=== PATIENT | female | born 1955 | race Two or more races ===

== ENCOUNTER 2020-12-26 08:05 | Outpatient (REF) | payer SELFPAY | END 2020-12-26 08:06 | disposition home or self-care (01) | LOC: HO.SCI 08:05 | PROVIDERS: Visit Provider Internal Medicine Geriatric Medicine | DX: Z13.89 Encounter for screening for other disorder (principal) ==

== ENCOUNTER 2021-03-15 12:04 | Outpatient (REF) | payer MEDICARE, SELFPAY ==
--- NOTE | ~2021-03-15 | MM_ITS ---
EXAMINATION: BONE DENSITOMETRY CLINICAL INDICATION: Encounter for screening for osteoporosis. COMPARISON: None (current study represents initial baseline exam). TECHNIQUE: Using a [employer] DXA System (software version: 13.1) manufactured by [employer], dual-energy x-ray absorptiometry was performed of the lumbar spine and left hip. The images are of good technical quality. Summary results are attached. FINDINGS: AP SPINE L1-L4: BMD 1.230 g/cm2, Z-score 2.2, T-score 0.4, normal. LEFT FEMUR, NECK: BMD 0.877 g/cm2, Z-score 0.5, T-score -1.2, osteopenia. LEFT FEMUR, TOTAL: BMD 0.864 g/cm2, Z-score 0.3, T-score -1.1, osteopenia. IDENTIFIED RISK FACTORS: Menopause. HISTORY OF FRACTURE: None listed. MEDICATIONS: None listed. MM/XR DEXA axial skeleton IMPRESSION: 1. DIAGNOSIS: Osteopenia based on the lowest T-score value of -1.2 in the femoral neck applying World Health Organization criteria. 2. 10-YEAR FRACTURE RISK PREDICTION, FRAX: Major osteoporotic fracture (clinical spine, forearm, hip or shoulder) 4.8%. Hip fracture 0.5%. 3. Treatment Recommendations: NOF guidelines recommend consideration for treatment in postmenopausal women and men age 50 and older presenting with the following: -A hip or vertebral (clinical or morphometric) fracture. -T-score less than or equal to -2.5 at the femoral neck or spine after appropriate evaluation to exclude secondary causes. -Low bone mass at the hip or spine and a 10-year fracture probability by FRAX of greater than or equal to 3% for hip fracture or greater than or equal to 20% for major osteoporotic fracture based on the [place] adapted WHO algorithm. 4. Other Recommendations: All treatment decisions require clinical judgment and consideration of individual patient factors, including patient preferences, comorbidities, previous drug use, risk factors not captured in the FRAX model (e.g. frailty, falls, vitamin D deficiency, increased bone turnover, interval significant decline in bone density) and possible under or overestimation of fracture risk by FRAX. Additional medical evaluation for secondary cause of low bone mineral density may be appropriate. FUTURE SCAN RECOMMENDATION: People with diagnosed cases of osteoporosis or at high risk for fracture should have regular bone mineral density tests. For patients eligible for Medicare, routine testing is allowed once every 2 years. The testing frequency can be increased to one year for patients who have rapidly progressing disease, those who are receiving or discontinuing medical therapy to restore bone mass, or have additional risk factors.
--- NOTE | ~2021-03-15 | MM_ITS ---
EXAMINATION: MM SCREENING DIGITAL BREAST TOMOSYNTHESIS, BILATERAL CLINICAL INFORMATION: Screening. Asymptomatic. The lifetime risk of breast cancer based on the Tyrer-Cuzick Model is 5.1%. COMPARISON: Mammography: October 28, 2009 TECHNIQUE: Digital breast tomosynthesis is performed in both the craniocaudal and mediolateral oblique views along with computer-aided detection (CAD). Synthesized 2D images are generated from the tomosynthesis. FINDINGS: There are scattered areas of fibroglandular density (ACR BI-RADS breast composition Category b). There is a stable parenchymal pattern of the right breast with no new abnormal dominant mass or suspicious grouping of microcalcifications. Within the anterior medial aspect of the left breast approximately 3 cm from nipple there is a 4 mm circumscribed density for which spot compression view and probable ultrasound is recommended. MM/MM tomosynthesis screening BI IMPRESSION: 4 mm density medial aspect of the left breast. ASSESSMENT: BI-RADS 0: Incomplete - Need Additional Imaging Evaluation RECOMMENDATION: 1. Additional views of the left breast 2. Targeted ultrasound if warranted after review of the additional views. 3. Radiology department staff will contact the patient for additional imaging. This patient's information was entered into a reminder system with a target due date for their next mammogram.
== END 2021-03-15 12:05 | disposition home or self-care (01) ==
LOC: HO.MAMMO 12:04
PROVIDERS: Visit Provider Internal Medicine Geriatric Medicine
DX: Z13.820 Encounter for screening for osteoporosis (principal); Z78.0 Asymptomatic menopausal state; Z12.31 Encounter for screening mammogram for malignant neoplasm of breast
CPT/HCPCS: 77063; 77067; 77080

== ENCOUNTER 2021-04-27 14:19 | Outpatient (REF) | payer MEDICARE, SELFPAY ==
--- NOTE | ~2021-04-27 | MM_ITS ---
EXAMINATION: MM DIAGNOSTIC DIGITAL BREAST TOMOSYNTHESIS, LEFT US DIAGNOSTIC ULTRASOUND BREAST, LEFT CLINICAL INFORMATION: Recall from screening for 4 mm nodule anterior left breast, new from prior remote exam 2009 COMPARISON: Mammography: 03/15/2021, outside mammography 10/28/2009 ([facility]) TECHNIQUE: Digital breast tomosynthesis is performed. 2D images are generated from the tomosynthesis. The following views are obtained: Spot CC, spot MLO Ultrasound left breast is targeted to the upper inner quadrant 9:00 through 1:00 position. Grayscale imaging and color Doppler are performed without and with harmonics. FINDINGS: There are scattered areas of fibroglandular density (ACR BI-RADS breast composition Category b). Additional spot views show smooth benign-appearing 3 x 4 mm nodule 11:30 o'clock position. No architectural abnormality. Ultrasound demonstrates incidental 0.3 cm cyst 11:00 position anterior breast with smaller adjacent satellite cyst. Margins are circumscribed. There is increased through-transmission of sound and no associated color flow. No solid mass or architectural abnormality. Results are discussed with the patient and family at time of visit. MM/MM tomosynthesis added views L IMPRESSION: Small cyst anterior 11:00 position corresponding to recent screening mammography. ASSESSMENT: BI-RADS 2: Benign RECOMMENDATION: Routine annual mammography screening. This patient's information was entered into a reminder system with a target due date for their next mammogram.
== END 2021-04-27 14:20 | disposition home or self-care (01) ==
LOC: HO.MAMMO 14:19
PROVIDERS: PCP Internal Medicine Geriatric Medicine; Visit Provider Internal Medicine Geriatric Medicine
DX: R92.2 Inconclusive mammogram (principal)
CPT/HCPCS: 76642; 77061; 77065

== ENCOUNTER 2022-03-21 08:54 | Outpatient (REF) | payer MEDICARE, SELFPAY ==
--- NOTE | ~2022-03-21 | MM_ITS ---
EXAMINATION: MM SCREENING DIGITAL BREAST TOMOSYNTHESIS, BILATERAL CLINICAL INFORMATION: Screening. Asymptomatic. The lifetime risk of breast cancer based on the Tyrer-Cuzick Model is 4%. COMPARISON: Mammography: 04/27/2021, 03/15/2021; outside mammography 10/28/2009 ([facility]). Ultrasound left breast 04/27/2021. TECHNIQUE: Digital breast tomosynthesis is performed in both the craniocaudal and mediolateral oblique views along with computer-aided detection (CAD). Synthesized 2D images are generated from the tomosynthesis. FINDINGS: There are scattered areas of fibroglandular density (ACR BI-RADS breast composition Category b). Parenchymal pattern is similar to prior studies. There is no significant mass or developing density or architectural abnormality. The axilla and skin contours are unremarkable. There is stable smooth nodularity central and outer left breast and posterior upper outer right breast. Again, scattered bilateral benign coarse intradermal calcifications are present in both breasts. There are incidental grouped dermal calcifications upper outer right breast. The left breast has interval grouped calcifications central breast just lateral to midline, 7 cm from nipple. Patient will be recalled for additional imaging. MM/MM tomosynthesis screening BI IMPRESSION: Left: -Grouped calcifications 7 cm from nipple just lateral to midline. Right: -No mammographic evidence of malignancy. ASSESSMENT: BI-RADS 0: Incomplete - Need Additional Imaging Evaluation RECOMMENDATION: 1. Additional views of the left breast (magnification CC, magnification ML). 2. Radiology department staff will contact the patient for additional imaging. This patient's information was entered into a reminder system with a target due date for their next mammogram.
== END 2022-03-21 08:55 | disposition home or self-care (01) ==
LOC: HO.MAMMO 08:54
PROVIDERS: PCP Internal Medicine Geriatric Medicine; Visit Provider Internal Medicine Geriatric Medicine
DX: Z12.31 Encounter for screening mammogram for malignant neoplasm of breast (principal)
CPT/HCPCS: 77063; 77067

== ENCOUNTER 2022-03-27 08:36 | Outpatient (REF) | payer MEDICARE, MEDICAID, SELFPAY ==
--- NOTE | ~2022-03-27 | MM_ITS ---
EXAMINATION: MM DIAGNOSTIC DIGITAL MAMMOGRAPHY, LEFT CLINICAL INFORMATION: Recall from screening for grouped calcifications mid left breast. COMPARISON: Mammography: 03/21/2022, 04/27/2021, 03/15/2021 TECHNIQUE: Digital mammography is performed in the following views: Magnification CC, magnification ML. FINDINGS: There are scattered areas of fibroglandular density (ACR BI-RADS breast composition Category b). The additional magnification views show loosely grouped heterogeneous calcifications central breast representing the area intended for recall. This represents change from prior studies, possibly fibroadenomatous change. Stereotactic sampling is recommended. The magnification views also show an unexpected smaller group of calcifications 3-4 cm more anterior which may be included as an additional site for stereotactic sampling. Results are discussed with the patient at time of visit, using an global chief creative officer. MM/MM added views LT IMPRESSION: -2 groups of calcifications left breast representing change from prior studies, stereotactic sampling recommended. ASSESSMENT: BI-RADS 4: Suspicious (subcategory 4A: Low suspicion for malignancy) RECOMMENDATION: Stereotactic biopsy at 2 sites left breast.
== END 2022-03-27 08:37 | disposition home or self-care (01) ==
LOC: HO.MAMMO 08:36
PROVIDERS: PCP Internal Medicine Geriatric Medicine; Visit Provider Internal Medicine Geriatric Medicine
DX: R92.1 Mammographic calcification found on diagnostic imaging of breast (principal)
CPT/HCPCS: 77065

== ENCOUNTER 2022-03-29 09:40 | Outpatient (REF) | payer MEDICARE, MEDICAID, SELFPAY ==
--- NOTE | ~2022-03-29 | MM_ITS ---
EXAMINATION: STEREOTACTIC TOMOSYNTHESIS-GUIDED VACUUM-ASSISTED BREAST BIOPSY, LEFT X 2 SPECIMEN RADIOGRAPH, LEFT X 2 POST PROCEDURE DIGITAL MAMMOGRAM, LEFT CLINICAL INFORMATION: 2 indeterminate groupings of calcifications within the left breast. COMPARISON: 03/27/2022 and studies dating back to 10/28/2009. TECHNIQUE/PROCEDURE: Informed consent was obtained from the patient after discussion of the benefits, risks, and alternatives to biopsy today. Patient appeared to understand. Gave opportunity for questions. Patient signed consent form. BIOPSY TABLE: [employer] Affirm Prone Biopsy System. LESION: 2 groupings of calcifications within the superior aspect of the left breast. LOCAL ANESTHESIA: 30 mL 1% lidocaine; 40 mL 1% lidocaine with epinephrine. DERMATOTOMY: 2 skin eun dermatotomies performed. NEEDLE: [employer] 9-gauge vacuum-assisted core biopsy device. APPROACH: Craniocaudal. TARGETING: Digital breast tomosynthesis used for targeting. CORES: 19 for one sample and 21 for the other sample. CLIP: [employer] T-SHAPED MARKER: For the more anterior grouping of calcifications. Cylinder for the more superior and posterior grouping of calcifications. SPECIMEN RADIOGRAPH: Specimen radiograph is taken in separate room using digital mammography. The index calcifications of each group of calcifications are in the excised cores. POST PROCEDURE UNILATERAL DIGITAL MAMMOGRAM: The post biopsy mammogram is performed in separate room using separate digital mammography equipment from the biopsy procedure. 2 views are obtained. There are scattered areas of fibroglandular density (breast composition category: b). The clip markers are in position. The calcifications are markedly decreased at the biopsy site. No gross hematoma. The patient tolerated the procedure well. No immediate complications. Home instructions reviewed with the patient. Final pathology results are pending. MM/MM stereotactic biopsy LT IMPRESSION: 1. Digital tomosynthesis-guided core biopsy (x 2), left breast with clip placement. 2. Specimen radiograph taken and post procedure mammogram. There is satisfactory positioning of the biopsy clips. 3. Final pathology results pending. An addendum report will be issued.
--- NOTE | ~2022-03-29 | MM_ITS ---
EXAMINATION: STEREOTACTIC TOMOSYNTHESIS-GUIDED VACUUM-ASSISTED BREAST BIOPSY, LEFT X 2 SPECIMEN RADIOGRAPH, LEFT X 2 POST PROCEDURE DIGITAL MAMMOGRAM, LEFT CLINICAL INFORMATION: 2 indeterminate groupings of calcifications within the left breast. COMPARISON: 03/27/2022 and studies dating back to 10/28/2009. TECHNIQUE/PROCEDURE: Informed consent was obtained from the patient after discussion of the benefits, risks, and alternatives to biopsy today. Patient appeared to understand. Gave opportunity for questions. Patient signed consent form. BIOPSY TABLE: [employer] Affirm Prone Biopsy System. LESION: 2 groupings of calcifications within the superior aspect of the left breast. LOCAL ANESTHESIA: 30 mL 1% lidocaine; 40 mL 1% lidocaine with epinephrine. DERMATOTOMY: 2 skin eun dermatotomies performed. NEEDLE: [employer] 9-gauge vacuum-assisted core biopsy device. APPROACH: Craniocaudal. TARGETING: Digital breast tomosynthesis used for targeting. CORES: 19 for one sample and 21 for the other sample. CLIP: [facility] SECURMARK T-SHAPED MARKER: For the more anterior grouping of calcifications. Cylinder for the more superior and posterior grouping of calcifications. SPECIMEN RADIOGRAPH: Specimen radiograph is taken in separate room using digital mammography. The index calcifications of each group of calcifications are in the excised cores. POST PROCEDURE UNILATERAL DIGITAL MAMMOGRAM: The post biopsy mammogram is performed in separate room using separate digital mammography equipment from the biopsy procedure. 2 views are obtained. There are scattered areas of fibroglandular density (breast composition category: b). The clip markers are in position. The calcifications are markedly decreased at the biopsy site. No gross hematoma. The patient tolerated the procedure well. No immediate complications. Home instructions reviewed with the patient. Final pathology results are pending. MM/MM stereotactic biopsy ea add IMPRESSION: 1. Digital tomosynthesis-guided core biopsy (x 2), left breast with clip placement. 2. Specimen radiograph taken and post procedure mammogram. There is satisfactory positioning of the biopsy clips. 3. Final pathology results pending. An addendum report will be issued.
[2022-03-29] MEDS: Lidocaine HCl 1 % 20 ML VIAL 30 ML SUBCUT (12:28)
[2022-03-29] MEDS: Sodium Bicarbonate 8.4% 50 MEQ/50 ML VIAL SUBCUT (12:31)
== END 2022-03-29 09:41 | disposition home or self-care (01) ==
LOC: HO.MAMMO 09:40
PROVIDERS: PCP Internal Medicine Geriatric Medicine; Visit Provider Surgery
DX: R92.1 Mammographic calcification found on diagnostic imaging of breast (principal); Z79.899 Other long term (current) drug therapy
CPT/HCPCS: 19081; 19082; 88305; 99202; A4648

== ENCOUNTER → 2022-04-05 10:20 | Outpatient (BNVA) | payer MEDICARE, MEDICAID, SELFPAY | PROVIDERS: PCP Internal Medicine Geriatric Medicine; Visit Provider Surgery | DX: R92.1 Mammographic calcification found on diagnostic imaging of breast (principal); Z98.890 Other specified postprocedural states | CPT/HCPCS: 99212 ==

== ENCOUNTER → 2022-05-11 08:58 | Day surgery (SDC) | payer MEDICARE, OTHER, SELFPAY ==
[2022-05-08 13:16] VITALS: BMI 23.3
--- NOTE | 2022-05-10 11:51 | P.CONAN_ITS ---
HPI - Anesthesia Eval Consult details Narrative: 67yo F for Breast Lumpectomy/Needle Loc PMFSH Active Problems Active Problems: All Active Problems (Updated 05/08/22 @ 13:16 by Cristin Johansen, RN) Intraductal papilloma of left breast (Acute) Hypertension (Acute) Breast calcification, left (Acute) Past Medical History Medical History (Updated 05/08/22 @ 13:16 by Cristin Johansen, RN) Anxiety Breast calcification, left Hypertension Intraductal papilloma of left breast Panic attacks Family History Family History Brother Throat cancer Stomach cancer Sister Breast cancer Surgical History Surgical History (Updated 05/08/22 @ 13:14 by Cristin Johansen RN) H/O excision of mass History of section Hx of colonoscopy Social History Social History Are you a primary direct support professional caregiver to a significant other at home: No Do you presently have visiting nurse or other home services: No Alcohol intake: current Alcohol intake frequency: holidays/special occasions only Patient Tobacco Use Status: Former Tobacco user Quit Date: Tobacco use type: Cigarette Use of substances other than those prescribed or required for medical reasons: No Are you DNR?: No Advance Directives: No Advance Directives Information Provided: Yes Advance Directives on File: No Recently lost weight without trying: No Nutrition Risks: No Nutritional Risk Meds Allergies Allergy/AdvReac Type Severity Reaction Status Date / Time No Known Allergies Allergy Verified 05/08/22 13:14 Home Medications Medication Instructions Recorded Confirmed Last Taken Type atorvastatin 20 mg tablet 20 mg PO DAILY 03/29/22 05/08/22 Unknown History calcium carbonate 500 mg-vitamin 1 tab PO BID 03/29/22 05/08/22 Unknown History D3 10 mcg (400 unit) tablet ([employer] Shell Calcium-Vitamin D3) lisinopril 10 mg tablet 10 mg PO DAILY 03/29/22 05/08/22 Unknown History metformin 850 mg tablet 850 mg PO BID 03/29/22 05/08/22 Unknown History omeprazole 20 mg capsule,delayed 20 mg PO DAILY 03/29/22 05/08/22 Unknown History release Exam Exam Date and Time: May 10, 2022 1151 Height,Weight and Vital Signs: Height 5 ft 3 in Weight 59.874 kg Assessment and Plan Assessment Anesthesia Assessment: Chart Reviewed
[2022-05-11 09:23] VITALS: BP 144/78; PULSE 85; RESP 15; TEMP 36.8; O2SAT 99
[2022-05-11] MEDS: Lactated Ringers 1,000 ML 100 ML IVCONT (09:42)
[2022-05-11 09:47] LABS: Glucose, Whole Blood 169 mg/dL (60-115)
--- NOTE | 2022-05-11 10:03 | MHC.SHP ---
Pre-Procedural Eval Section A Date of Service: 05/11/22 Section B Chief Complaint: Mammographic calcification found on diagnostic ishan Details of Present Illness: had biopsy of left breast calcifications showing intraductal papilloma Relevant Family History (Specify if Yes): No Present Medications: see Short Stay Collaborative assessment Medical History: Significant History (HTN) Allergies: Allergies Allergy/AdvReac Type Severity Reaction Status Date / Time No Known Allergies Allergy Verified 05/11/22 09:11 Review of Systems Sugical H&P ROS: Negative: Constitution, Cardiovascular, Respiratory, Neurological, Psychiatric, Hem-Onc, Allergic/Immunologic, Gastrointestinal, Genitourinary, Musculoskeletal, Integumentary, Endocrine and Eyes/Ears/Nose/Throat Exam Surgical H&P Exam: Normal: HEENT, Normal: Heart, Normal: Lungs, Normal: Extremities, Normal: Abdomen, Normal: Skin and Normal: Neurological Plan Diagnosis/Plan: Unchanged I have reviewed the history and physical and performed a pertinent physical examination on my patient. No changes have occurred unless specified.
--- NOTE | 2022-05-11 10:59 | PC.NURSE ---
[facility] informed [facility] that Needle Loc. machine is down and has called for it to be serviced. Dr. Jeter and Deo at beside with patient to inform of this. Pt informed office will call to reschedule procedure.
== END | disposition home or self-care (01) ==
PROVIDERS: PCP Internal Medicine Geriatric Medicine; Visit Provider Surgery
DX: R92.1 Mammographic calcification found on diagnostic imaging of breast (principal); Z53.8 Procedure and treatment not carried out for other reasons; D24.2 Benign neoplasm of left breast; I10 Essential (primary) hypertension; Z79.84 Long term (current) use of oral hypoglycemic drugs; Z79.899 Other long term (current) drug therapy
CPT/HCPCS: 82947; J0690; J2250; J2795; J3010

== ENCOUNTER 2022-06-21 06:33 | Day surgery (SDC) | payer MEDICARE, OTHER, SELFPAY ==
[2022-06-19 12:03] VITALS: BMI 23.3
--- NOTE | 2022-06-20 10:42 | HO.ANESPROP2 ---
Documented by User: Judi Bearden NP 06/20/22 10:43 HPI - Anesthesia Eval Consult details Narrative: 67yo F for Left Breast Lumpectomy/Needle Loc PMFSH Active Problems Active Problems: All Active Problems (Updated 05/11/22 @ 09:40 by Jackie Nicole, RN) Intraductal papilloma of left breast (Acute) Hypertension (Acute) Breast calcification, left (Acute) Past Medical History Medical History Anxiety Breast calcification, left Diabetes GERD (gastroesophageal reflux disease) Hypertension Intraductal papilloma of left breast Panic attacks Family History Family History Brother Throat cancer Stomach cancer Sister Breast cancer Surgical History Surgical History H/O excision of mass History of section Hx of colonoscopy Social History Social History Are you a primary resident care assistant to a significant other at home: No Do you presently have visiting nurse or other home services: No Alcohol intake: current Alcohol intake frequency: holidays/special occasions only Patient Tobacco Use Status: Former Tobacco user Quit Date: Tobacco use type: Cigarette Use of substances other than those prescribed or required for medical reasons: No Are you DNR?: No Advance Directives: No Advance Directives Information Provided: Yes Advance Directives on File: No Recently lost weight without trying: No Nutrition Risks: No Nutritional Risk Meds Allergies Allergy/AdvReac Type Severity Reaction Status Date / Time No Known Allergies Allergy Verified 06/19/22 12:09 Home Medications Medication Instructions Recorded Confirmed Last Taken Type atorvastatin 20 mg tablet 20 mg PO DAILY 03/29/22 06/19/22 Unknown History calcium carbonate 500 mg-vitamin 1 tab PO BID 03/29/22 06/19/22 Unknown History D3 10 mcg (400 unit) tablet (Oyster Shell Calcium-Vitamin D3) lisinopril 10 mg tablet 10 mg PO DAILY 03/29/22 06/19/22 Unknown History metformin 850 mg tablet 850 mg PO BID 03/29/22 06/19/22 Unknown History omeprazole 20 mg capsule,delayed 20 mg PO DAILY 03/29/22 06/19/22 05/11/22 07:00 History release Exam Exam Date and Time: June 20, 2022 1042 Height,Weight and Vital Signs: Height 5 ft 3 in Weight 59.87 kg Assessment and Plan Assessment Anesthesia Assessment: Chart Reviewed Documented by User: Maximiliano Hahn MD 06/21/22 07:58 PMFSH Past Medical History Medical History Anxiety Breast calcification, left Diabetes GERD (gastroesophageal reflux disease) Hypertension Intraductal papilloma of left breast Panic attacks Family History Family History Brother Throat cancer Stomach cancer Sister Breast cancer Family history of problems with anesthesia: No Surgical History Surgical History H/O excision of mass History of section Hx of colonoscopy History of Problems with Anesthesia: No Social History Social History Are you a primary resident care assistant to a significant other at home: No Do you presently have visiting nurse or other home services: No Alcohol intake: current Alcohol intake frequency: holidays/special occasions only Patient Tobacco Use Status: Former Tobacco user Quit Date: Tobacco use type: Cigarette Use of substances other than those prescribed or required for medical reasons: No Are you DNR?: No Advance Directives: No Advance Directives Information Provided: Yes Advance Directives on File: No Recently lost weight without trying: No Nutrition Risks: No Nutritional Risk Meds Allergies Allergy/AdvReac Type Severity Reaction Status Date / Time No Known Allergies Allergy Verified 06/19/22 12:09 Home Medications Medication Instructions Recorded Confirmed Last Taken Type atorvastatin 20 mg tablet 20 mg PO DAILY 03/29/22 06/19/22 Unknown History calcium carbonate 500 mg-vitamin 1 tab PO BID 03/29/22 06/19/22 Unknown History D3 10 mcg (400 unit) tablet (Oyster Shell Calcium-Vitamin D3) lisinopril 10 mg tablet 10 mg PO DAILY 03/29/22 06/19/22 Unknown History metformin 850 mg tablet 850 mg PO BID 03/29/22 06/19/22 Unknown History omeprazole 20 mg capsule,delayed 20 mg PO DAILY 03/29/22 06/19/22 05/11/22 07:00 History release Exam Airway Mallampati Class: IV TM Dist: >3cm Neck ROM: Full Heart: S1S2, reg., no murmur Lungs: clear Other: pharynx with mild hyperemia Assessment and Plan Assessment Anesthesia Assessment: Anesthesia Plan Discussed Final Anesthetic Review Family History of Problems with Anesthesia: No History of Problems with Anesthesia: No NPO: Yes ASA Class: II Final Preanesthetic Review: No Changes in Pt Med Stat, Meds/Allgs Chart Reviewed, Consent Obtained/Reviewed and Anes Risks/Benef Reviewed Patient Risk: Intermediate Procedure Risk: Intermediate Anesthetic Plan Anesthetic Plan: GA Disposition: Standard PACU
--- NOTE | ~2022-06-21 | MM_ITS ---
EXAMINATION: MM MAMMOGRAM GUIDED NEEDLE LOCALIZATION BREAST, LEFT MM NEEDLE LOCALIZATION SPECIMEN FROM THE LEFT BREAST CLINICAL INFORMATION: Intraductal papillomas on recent stereotactic sampling 03/29/2022. COMPARISON: Mammography 12/27/2021, 03/27/2022, 03/21/2022 TECHNIQUE NEEDLE LOC: Proper informed consent is obtained from the patient after discussion of the procedure, potential risks and complications, and alternatives including declining the procedure today. Patient was given an opportunity for questions. The patient appeared to understand. The patient consented to the procedure and signed the consent form. GUIDANCE: Digital mammography. APPROACH: Caudal Cranial. TARGET: T shaped (top hat) biopsy clip marker central left breast. ANESTHESIA: Carbonated lidocaine 1%: 6 mL. LOCALIZATION MARKER: [place] [employer]. 7.5 cm length. The skin is prepped and local anesthesia administered. The needle is positioned and position assessed with mammography. The wire is hooked into position. Newberry needle protector placed. The patient tolerated the procedure well and had no immediate complication. Procedure results discussed with Dr. Jeter prior to surgery. TECHNIQUE SPECIMEN RADIOGRAPH: Imaging of the excised specimen is performed using digital mammography in 1 view. FINDINGS SPECIMEN RADIOGRAPH: The specimen shows the needle and hookwire are delivered intact. Both of the biopsy clip markers are within the specimen, the targeted T-shaped clip marker (intraductal papillomas) and the cylinder shaped clip marker. Results were called to Dr. Ruddy Jeter in the operating room at the time of imaging. Specimen x-ray findings are also called and discussed with Dr. Sotelo on 06/21/2022. MM/MM needle loc LT IMPRESSION: 1. Status post left breast needle localization with wire hooked into position. 2. Post operative specimen radiograph obtained.
[2022-06-21 07:27] VITALS: BP 144/77; PULSE 85; RESP 18; TEMP 36.7; O2SAT 98
[2022-06-21] MEDS: Lactated Ringers 1,000 ML 100 ML IVCONT (07:46)
--- NOTE | 2022-06-21 08:06 | PC.NURSE ---
patient leaving for needle loc procedure now. report given to [place].
[2022-06-21 08:09] LABS: Glucose, Whole Blood 186 mg/dL (60-115)
--- NOTE | 2022-06-21 08:26 | MHC.SHP ---
Pre-Procedural Eval Section A Date of Service: 06/21/22 The patient is an INPATIENT: No Changes since office visit: No Cold of Flu in the past 2 weeks, No New Medical Problems, No Changes in Medication and No Patient answered all questions The History & Physical has been completed within 30 days and I have reviewed it.: Yes Section B Chief Complaint: Mammographic calcification found on diagnostic Allergies: Allergies Allergy/AdvReac Type Severity Reaction Status Date / Time No Known Allergies Allergy Verified 06/19/22 12:09 Plan I have reviewed the history and physical and performed a pertinent physical examination on my patient. No changes have occurred unless specified. Time Spent With Patient Time: Total time managing care of this patient today ____ minutes.
--- NOTE | 2022-06-21 10:04 | W.PM.OPN ---
Operative Note Operative Note Date of Service: 06/21/22 Narrative: Preop diagnosis: Intraductal papilloma, left breast Postop diagnosis: Intraductal papilloma, left breast Procedure: Lumpectomy, left breast with needle localization Surgeon: Ruddy Jeter MD pharmacy innovation assistant: VANE Rojas The patient is a 67-year-old female who had recently undergone stereotactic biopsy of the left breast and was noted to have an intraductal papilloma. I had recommended defer to undergo in view of the association with higher grade lesions. She understood the technique of lumpectomy with needle localization and was aware of the risks, benefits, and alternatives. The patient had undergone needle localization earlier this morning. I had reviewed the films with the radiologist. She was brought to the operating room. She was placed supine under general anesthesia via laryngeal mask airway. The left breast was prepped and draped in the usual sterile fashion. A surgical time-out was done. The patient received cefazolin 2 g IV preoperatively I infiltrated the planned line of incision using lidocaine 1%. I made the incision gentle to the entry point of the localizing needle using blade number 15. This was carried down with electrocautery through the full-thickness of the skin subcutaneous fat. I then used the curved Hartley scissors to divide breast tissue surrounding this needle. I periodically palpated the needle to make sure that we were going into the right direction regards to the orientation of the toe itself. I was able to get past a curve the needle. I continued to sharply dissect breast tissue surrounding this needle with care being taken to make sure that we had adequate amount of tissue surrounding the needle. This was sent as a specimen. I had marked the lateral and superior aspects with sutures for orientation I observed for hemostasis. I copiously irrigated. Once hemostasis was ensured I reapposed deep breast tissue with Dexon 3-0 interrupted sutures. Skin closure was achieved with Dexon 4-0 subcuticular running sutures. Dressings were applied. The area was infiltrated with Marcaine 0.5% for postop analgesia. We then were called by the radiologist stating that the clips were within the specimen and we appeared to have adequate tissue surrounding the needle and the clip. The procedure was therefore completed. She tolerated procedure well. There were no immediate complications. Initial and final counts of sponges and instruments were correct. Estimated blood loss about 20 cc. The patient was extubated without difficulty and transferred to the recovery room with stable vital signs.
[2022-06-21 10:10] VITALS: BP 119/64; PULSE 85; RESP 12; TEMP 37.7; O2SAT 95
[2022-06-21 10:15] VITALS: BP 120/66; PULSE 83; RESP 14; O2SAT 97
[2022-06-21 10:20] VITALS: BP 129/66; PULSE 77; RESP 14; O2SAT 97
[2022-06-21 10:23] VITALS: BP 126/67; PULSE 76; RESP 14; TEMP 37.2; O2SAT 97
[2022-06-21 10:38] VITALS: BP 124/63; PULSE 76; RESP 16; TEMP 36.9; O2SAT 96
[2022-06-21] MEDS: Sodium Bicarbonate 8.4% 50 MEQ/50 ML VIAL SUBCUT (10:49)
[2022-06-21] MEDS: Lidocaine HCl 1 % 20 ML VIAL 9 ML SUBCUT (10:50)
== END 2022-06-21 11:12 | disposition home or self-care (01) ==
PROVIDERS: PCP Internal Medicine Geriatric Medicine; Visit Provider Surgery
PROC: (CPT 19301; principal; 2022-06-21 09:00)
DX: D24.2 Benign neoplasm of left breast (principal); N60.82 Other benign mammary dysplasias of left breast; N60.22 Fibroadenosis of left breast; K21.9 Gastro-esophageal reflux disease without esophagitis; I10 Essential (primary) hypertension; E11.9 Type 2 diabetes mellitus without complications; Z79.84 Long term (current) use of oral hypoglycemic drugs; Z79.899 Other long term (current) drug therapy
CPT/HCPCS: 19301; 19281; 82947; 88307; 88329; A4648; J0690; J1100; J1885; J2250; J2405; J2795; J3010

== ENCOUNTER → 2022-07-05 09:45 | Outpatient (BNVA) | payer MEDICARE, MEDICAID, SELFPAY | PROVIDERS: PCP Internal Medicine Geriatric Medicine; Referring Provider Internal Medicine Geriatric Medicine; Visit Provider Surgery | DX: Z13.89 Encounter for screening for other disorder (principal) | CPT/HCPCS: 99212 ==

== ENCOUNTER 2023-01-24 09:28 | Outpatient (REF) | payer MEDICARE, MEDICAID, SELFPAY ==
[2023-01-24 11:55] LABS: Anion Gap 12 (12-20); Blood Urea Nitrogen 7 mg/dL (9-16); Calcium 9.8 mg/dL (8.4-10.2); Carbon Dioxide 29 mmol/L (22-29); Chloride 103 mmol/L (96-108); Estimated Glomerular Filt Rate > 60; Glucose Random 140 mg/dL (60-115); Potassium 4.7 mmol/L (3.3-5.1); Sodium 139 mmol/L (135-145)
== END 2023-01-24 09:29 | disposition home or self-care (01) ==
LOC: HO.HHCL 09:28
PROVIDERS: Visit Provider Internal Medicine Geriatric Medicine
DX: E11.9 Type 2 diabetes mellitus without complications (principal); I10 Essential (primary) hypertension
CPT/HCPCS: 36415; 80048

== ENCOUNTER 2023-01-31 15:16 | Outpatient (REF) | payer MEDICARE, MEDICAID, SELFPAY | END 2023-01-31 15:17 | disposition home or self-care (01) | LOC: HO.HHCLNP 15:16 | PROVIDERS: Visit Provider Internal Medicine Geriatric Medicine | DX: Z12.11 Encounter for screening for malignant neoplasm of colon (principal) | CPT/HCPCS: 82274 ==

== ENCOUNTER 2023-03-27 18:36 | Outpatient (REF) | payer MEDICARE, MEDICAID, SELFPAY ==
[2023-03-29 22:48] LABS: HPV mRNA E6/E7 rflx Not Detected (Not Detected)
== END 2023-03-27 18:37 | disposition home or self-care (01) ==
LOC: HO.HHCLNP 18:36
PROVIDERS: Visit Provider Registered Nurse
DX: Z12.4 Encounter for screening for malignant neoplasm of cervix (principal); Z11.51 Encounter for screening for human papillomavirus (HPV)
CPT/HCPCS: 87624; 88142

== ENCOUNTER 2023-06-27 08:33 | Outpatient (REF) | payer MEDICARE, MEDICAID, SELFPAY ==
--- NOTE | ~2023-06-27 | MM_ITS ---
EXAMINATION: MM SCREENING DIGITAL BREAST TOMOSYNTHESIS, BILATERAL CLINICAL INFORMATION: Screening. Asymptomatic. The patient is status post left breast excision for benign disease. COMPARISON: Mammography: This study is compared with prior exams dating back to 2020. TECHNIQUE: Digital breast tomosynthesis is performed in both the craniocaudal and mediolateral oblique views along with computer-aided detection (CAD). Synthesized 2D images are generated from the tomosynthesis. FINDINGS: There are scattered areas of fibroglandular density (ACR BI-RADS breast composition Category b). There are no significant masses, abnormal calcifications, or other abnormalities. There are postsurgical changes in the superior aspect of the left breast from prior excision for benign disease. Bilateral, benign calcifications are present in each breast. MM/MM tomosynthesis screening BI IMPRESSION: No mammographic evidence of malignancy. ASSESSMENT: BI-RADS BI-RADS 2 - Benign Findings RECOMMENDATION: Routine annual mammography screening. 1 year F/U This examination should not preclude the clinical evaluation of a suspicious palpable abnormality. This patient's information was entered into a reminder system with a target due date for their next mammogram.
== END 2023-06-27 08:34 | disposition home or self-care (01) ==
LOC: HO.MAMMO 08:33
PROVIDERS: PCP Internal Medicine Geriatric Medicine; Visit Provider Internal Medicine Geriatric Medicine
DX: Z12.31 Encounter for screening mammogram for malignant neoplasm of breast (principal)
CPT/HCPCS: 77063; 77067

== ENCOUNTER → 2023-06-27 09:15 | Outpatient (BNV) | payer MEDICARE, MEDICAID, SELFPAY | PROVIDERS: PCP Internal Medicine Geriatric Medicine; Visit Provider Radiology Diagnostic Radiology | DX: Z12.31 Encounter for screening mammogram for malignant neoplasm of breast (principal) | CPT/HCPCS: 77063; 77067 ==

== ENCOUNTER 2023-08-23 09:22 | Outpatient (REF) | payer MEDICARE, MEDICAID, SELFPAY ==
[2023-08-23 11:39] LABS: Basophils Percent Auto 0.5 % (0-2); Imm Gran Abs Auto 0.02 X10*3/uL (0.00-0.03); Imm Gran Pct Auto 0.2 % (0.0-0.4); MANUAL DIFF FLAG SCAN; PLT CLUMP 1; SCAN SMEAR FLAG 1
[2023-08-23 11:41] LABS: Eosinophils Absolute Auto 0.1 X10*3/uL (0.0-0.4); Eosinophils Percent Auto 1.2 % (0-4); Hematocrit 37.7 % (37.0-47.0); Hemoglobin 12.7 g/dl (12.0-16.0); Lymphocytes Absolute Auto 3.9 X10*3/uL (1.2-4.9); Lymphocytes Percent Auto 44.1 % (20-40); Mean Corpuscular HGB Conc 33.7 g/dl (31.0-35.0); Mean Corpuscular Hemoglobin 31.6 pg (27.0-33.0); Mean Corpuscular Volume 93.8 fL (80.0-98.0); Mean Platelet Volume 11.3 fL (9.4-12.3); Monocytes Absolute Auto 0.6 X10*3/uL (0.1-1.2); Monocytes Percent Auto 6.8 % (2-11); Neutrophils Absolute Auto 4.2 x10*3/uL (2.0-8.3); Neutrophils Percent Auto 47.2 % (45-73); Red Blood Count 4.02 X10*6/uL (4.20-5.50)
[2023-08-23 11:49] LABS: White Blood Count 8.9 X10*3/uL (4.8-10.8)
[2023-08-23 11:55] LABS: SLIDE REVIEW VERIFIED
[2023-08-23 12:07] LABS: Alanine Aminotransferase 27 U/L (0-31); Albumin Level 4.1 g/dL (3.5-5.0); Alkaline Phosphatase 52 U/L (39-117); Anion Gap 13 (12-20); Aspartate Amino Transferase 28 U/L (5-31); Bilirubin Total 0.5 mg/dL (0.0-1.0); Blood Urea Nitrogen 11 mg/dL (9-16); Calcium 9.5 mg/dL (8.4-10.2); Carbon Dioxide 25 mmol/L (22-29); Chloride 105 mmol/L (96-108); Cholesterol 142 mg/dL (<200); Estimated Glomerular Filt Rate > 60; Glucose Random 124 mg/dL (60-115); HDL Cholesterol 45 mg/dL (>40); LDL Cholesterol Calculated 81 mg/dL (<100); Potassium 4.8 mmol/L (3.3-5.1); Sodium 138 mmol/L (135-145); Total Protein 7.2 g/dL (6.5-8.0); Triglycerides 81 mg/dL (<150)
[2023-08-23 12:21] LABS: ~HepC Num1 0.28 S/CO (0.00-0.79); ~Hepatitis C Antibody Nonreactive (Nonreactive)
[2023-08-23 12:46] LABS: Creatinine Urine 243.16 mg/dL; Microalbum/Creatinine Ratio Ur 8.2 ug/mg cr (<30)
== END 2023-08-23 09:23 | disposition home or self-care (01) ==
LOC: HO.HHCL 09:22
PROVIDERS: Visit Provider Internal Medicine Geriatric Medicine
DX: Z11.59 Encounter for screening for other viral diseases (principal); E11.9 Type 2 diabetes mellitus without complications
CPT/HCPCS: 36415; 80053; 80061; 82043; 82570; 85025; 86803

== ENCOUNTER 2024-01-16 10:04 | Outpatient (REF) | payer MEDICARE, MEDICAID, SELFPAY ==
--- NOTE | ~2024-01-16 | MM_ITS ---
EXAMINATION: BONE DENSITOMETRY CLINICAL INDICATION: Postmenopausal bone loss. COMPARISON: Baseline BD dated 03/15/2021. TECHNIQUE: Using a [employer] DXA System (software version: 13.1) manufactured by [employer], dual-energy x-ray absorptiometry was performed of the lumbar spine and left hip. The images are of good technical quality. Summary results are attached. FINDINGS: AP SPINE L1-L4: Current: BMD 1.152 g/cm2, Z-score 1.6, T-score -0.2, normal, 6.3% decrease from baseline (<5% change is not significant). Baseline: BMD 1.230 g/cm2. LEFT FEMUR, NECK: Current: BMD 0.842 g/cm2, Z-score 0.4, T-score -1.4, osteopenia. Baseline: BMD 0.877 g/cm2. LEFT FEMUR, TOTAL: Current: BMD 0.838 g/cm2, Z-score 0.3, T-score -1.3, osteopenia, 3.0% decrease from baseline (<5% change is not significant). Baseline: BMD 0.864 g/cm2. IDENTIFIED RISK FACTORS: Menopause. HISTORY OF FRACTURE: None listed. MEDICATIONS: None listed. MM/XR DEXA axial skeleton IMPRESSION: 1. DIAGNOSIS: Osteopenia based on the lowest T-score value of -1.4 in the femoral neck applying World Health Organization criteria. 2. 10-YEAR FRACTURE RISK PREDICTION, FRAX: Major osteoporotic fracture (clinical spine, forearm, hip or shoulder) 5.5%. Hip fracture 0.8%. 3. Treatment Recommendations: NOF guidelines recommend consideration for treatment in postmenopausal women and men age 50 and older presenting with the following: -A hip or vertebral (clinical or morphometric) fracture. -T-score less than or equal to -2.5 at the femoral neck or spine after appropriate evaluation to exclude secondary causes. -Low bone mass at the hip or spine and a 10-year fracture probability by FRAX of greater than or equal to 3% for hip fracture or greater than or equal to 20% for major osteoporotic fracture based on the [place] adapted WHO algorithm. 4. Other Recommendations: All treatment decisions require clinical judgment and consideration of individual patient factors, including patient preferences, comorbidities, previous drug use, risk factors not captured in the FRAX model (e.g. frailty, falls, vitamin D deficiency, increased bone turnover, interval significant decline in bone density) and possible under or overestimation of fracture risk by FRAX. Additional medical evaluation for secondary cause of low bone mineral density may be appropriate. FUTURE SCAN RECOMMENDATION: People with diagnosed cases of osteoporosis or at high risk for fracture should have regular bone mineral density tests. For patients eligible for Medicare, routine testing is allowed once every 2 years. The testing frequency can be increased to one year for patients who have rapidly progressing disease, those who are receiving or discontinuing medical therapy to restore bone mass, or have additional risk factors.
== END 2024-01-16 10:05 | disposition home or self-care (01) ==
LOC: HO.MAMMO 10:04
PROVIDERS: PCP Internal Medicine Geriatric Medicine; Visit Provider Internal Medicine Geriatric Medicine
DX: M81.0 Age-related osteoporosis without current pathological fracture (principal)
CPT/HCPCS: 77080

== ENCOUNTER 2024-07-02 08:52 | Outpatient (REF) | payer MEDICARE, MEDICAID, SELFPAY | END 2024-07-02 08:53 | disposition home or self-care (01) | LOC: HO.MAMMO 08:52 | PROVIDERS: PCP Internal Medicine Geriatric Medicine; Visit Provider Internal Medicine Geriatric Medicine | DX: Z12.31 Encounter for screening mammogram for malignant neoplasm of breast (principal) | CPT/HCPCS: 77063; 77067 ==

== ENCOUNTER → 2024-07-02 09:00 | Outpatient (BNV) | payer MEDICARE, MEDICAID, SELFPAY | PROVIDERS: PCP Internal Medicine Geriatric Medicine; Visit Provider Internal Medicine | DX: Z12.31 Encounter for screening mammogram for malignant neoplasm of breast (principal) | CPT/HCPCS: 77063; 77067 ==

== ENCOUNTER 2025-02-18 10:28 | Outpatient (REF) | payer MEDICARE, MEDICAID, SELFPAY ==
[2025-02-18 14:18] LABS: MANUAL DIFF FLAG NO
[2025-02-18 14:27] LABS: Hematocrit 35.9 % (37.0-47.0); Hemoglobin 12.2 g/dl (12.0-16.0); Imm Gran Abs Auto 0.02 X10*3/uL (0.00-0.03); Imm Gran Pct Auto 0.2 % (0.0-0.4); Lymphocytes Absolute Auto 4.4 X10*3/uL (1.2-4.9); Mean Corpuscular HGB Conc 34.0 g/dl (31.0-35.0); Mean Corpuscular Hemoglobin 31.9 pg (27.0-33.0); Mean Corpuscular Volume 94.0 fL (80.0-98.0); NRBC Abs Auto 0.000 X10*3/uL (0.0-0.012); NRBC Pct Auto 0.0 /100WBC (0.0-0.2); Platelet Count 271 X10*3/uL (160-400); Red Blood Count 3.82 X10*6/uL (4.20-5.50); White Blood Count 9.8 X10*3/uL (4.8-10.8)
[2025-02-18 14:51] LABS: Alanine Aminotransferase 38 U/L (0-31); Albumin Level 4.0 g/dL (3.5-5.0); Alkaline Phosphatase 70 U/L (39-117); Anion Gap 10 (12-20); Aspartate Amino Transferase 43 U/L (5-31); Blood Urea Nitrogen 7 mg/dL (9-16); Calcium 9.0 mg/dL (8.4-10.2); Carbon Dioxide 29 mmol/L (22-29); Chloride 104 mmol/L (96-108); Cholesterol 185 mg/dL (<200); Estimated Glomerular Filt Rate > 60; HDL Cholesterol 41 mg/dL (>40); Potassium 3.9 mmol/L (3.3-5.1); Sodium 139 mmol/L (135-145); Total Protein 6.9 g/dL (6.5-8.0); Triglycerides 139 mg/dL (<150)
[2025-02-18 15:02] LABS: Microalbum/Creatinine Ratio Ur 15.4 ug/mg cr (<30)
== END 2025-02-18 10:29 | disposition home or self-care (01) ==
LOC: CF 10:28
PROVIDERS: Visit Provider Internal Medicine Geriatric Medicine
DX: I10 Essential (primary) hypertension (principal); E11.9 Type 2 diabetes mellitus without complications
CPT/HCPCS: 36415; 80053; 80061; 82043; 82570; 85025